=== PATIENT | female | born 1995 | race Caucasian/White ===

== ENCOUNTER → 2019-07-12 09:00 | Outpatient (CLI) | payer SELFPAY ==
--- NOTE | 2019-07-12 | DI.US.S_ITS ---
ULTRASOUND OF LEFT BREAST: 07/12/2019 CLINICAL: Palpable left breast lump and focal pain. No prior exams were available for comparison. Ultrasound of the left breast was performed on the area of interest. Oreilly scale images of the real-time examination were reviewed. IMPRESSION: NEGATIVE There is no sonographic evidence of malignancy. There is no sonographic abnormality seen in the left breast to correspond with the pain in the lower inner quadrant, however, clinical followup is recommended. Return to annual mammogram screening schedule is recommended. This exam was interpreted at Station ID: [id number]. Electronically Signed By: Aleyda Cazares M.D. lk/:07/12/2019 09:34:43 letter sent: Clinical Evaluation Ultrasound BI-RADS: 1 Negative
== END ==
PROVIDERS: Family Provider Family Medicine; Referring Provider Physician Assistant; Visit Provider Physician Assistant
DX: N64.4 Mastodynia (principal); N63.20 Unspecified lump in the left breast, unspecified quadrant
CPT/HCPCS: 76642

== ENCOUNTER → 2022-04-21 09:00 | Outpatient (CLI) | payer OTHER, SELFPAY ==
[2022-04-21 20:25] LABS: HCG Quantitative /Beta subunit < 2.4 mIU/mL
== END ==
PROVIDERS: Family Provider Family Medicine; PCP Physician Assistant; Visit Provider Family Medicine
DX: N92.6 Irregular menstruation, unspecified (principal); Z87.59 Personal history of other complications of pregnancy, childbirth and the puerperium
CPT/HCPCS: 84702

== ENCOUNTER → 2022-10-06 10:46 | Outpatient (CLI) | payer OTHER, SELFPAY ==
[2022-10-06 11:52] LABS: Add Manual Diff / Slide Review NO; Basophils Absolute Auto 0 /uL (0-100); Basophils Percent Auto 0.4 % (0-2); Eosinophils Absolute Auto 100 /uL (0-450); Eosinophils Percent Auto 0.9 % (2-4); Hematocrit 33.9 % (36-46); Hemoglobin 12.1 g/dL (12.0-16.0); Lymphocytes Absolute Auto 1800 /uL (1100-4500); Lymphocytes Percent Auto 24.5 % (25-40); Mean Corpuscular HGB Conc 35.6 % (30-36); Mean Corpuscular Hemoglobin 32.6 PG (26-34); Mean Corpuscular Volume 91.5 fL (80-100); Monocytes Absolute Auto 700 /uL (0-900); Monocytes Percent Auto 9.1 % (3-14); Neutrophils Absolute Auto 4700 /uL (1500-7000); Neutrophils Percent Auto 65.1 % (50-75); Platelet Count 309 X10^3/uL (150-400); White Blood Cell Count 7.2 X10^3/uL (4.5-11.0)
[2022-10-06 15:07] LABS: Urine N gonorrhoeae NOT DETECTED
[2022-10-06 15:32] LABS: Urine Chlamydia NOT DETECTED
[2022-10-06 17:21] LABS: Hepatitis B Surface Antigen NEGATIVE s/c (NEGATIVE); Rubella Antibody IgG 50.7 IU/mL (>15)
[2022-10-06 17:29] LABS: HIV 1 & 2 Ab/Ag 4th Gen Combo NEGATIVE (NEGATIVE); Hep C Virus Ab w/Reflex Quant NEGATIVE s/c (NEGATIVE)
[2022-10-07 06:09] LABS: RPR Screen Non Reactive (Non Reactive)
[2022-10-07 10:36] LABS: Varicella IgG Antibody 1184 index (Immune >165)
== END ==
PROVIDERS: Obstetrics & Gynecology; Family Provider Family Medicine; PCP Physician Assistant; Referring Provider Specialist; Visit Provider Specialist
DX: Z34.80 Encounter for supervision of other normal pregnancy, unspecified trimester (principal)
CPT/HCPCS: 36415; 80055; 86787; 86803; 86850; 86900; 86901; 87086; 87389; 87491; 87591

== ENCOUNTER → 2022-12-03 09:14 | Outpatient (CLI) | payer OTHER, SELFPAY ==
[2022-12-05 19:36] LABS: AFP, Serum 29.2 ng/mL (.); Estriol, Free 0.98 ng/mL (.); Inhibin A, Dimeric 182.45 pg/mL (.); Maternal Ethnicity Caucasian (.); Maternal Weight 150 lbs (.); Number of Fetuses No (.); OSBR Risk 1 IN 10000 (.); Results Report (.); Test Results *Screen Negative* (.); hCG, MoM 0.61 (.); hCG, Serum 24308 mIU/mL (.)
== END ==
PROVIDERS: Family Provider Family Medicine; PCP Physician Assistant; Referring Provider Student in an Organized Health Care Education/Training Program; Visit Provider Student in an Organized Health Care Education/Training Program
DX: Z3A.16 16 weeks gestation of pregnancy (principal); Z34.82 Encounter for supervision of other normal pregnancy, second trimester
CPT/HCPCS: 36415; 82105; 82677; 84702; 86336

== ENCOUNTER → 2022-12-25 08:35 | Outpatient (CLI) | payer OTHER, SELFPAY ==
--- NOTE | 2022-12-25 08:36 | DI.US.S_ITS ---
PROCEDURE: US OB >= 14 WEEKS FETUS INDICATIONS: 20 WEEK ANATOMY OUTSIDE/PRIOR DATING DATA: Last menstrual period (LMP): 08/08/2022. LMP-based estimated date of delivery (MARIA FERNANDA): 05/15/2023. First dating scan (date and location): Not applicable. Estimated date of delivery (MARIA FERNANDA) from first dating scan: Not applicable. The calculations are made using the clinical MARIA FERNANDA of 05/15/2023. TECHNIQUE: Real-time scanning was performed of the fetus, with image documentation and biometric measurements. Endovaginal scanning: Non COMPARISON: None. FINDINGS: General: A single living intrauterine gestation is present. Presentation: Vertex Placenta: Placental position is posterior , without previa. Amniotic fluid index: 14.6 cm, normal range is 5-24 cm. Single deepest vertical pocket is 4.9 cm. heart rate: 155 beats per minute. Maternal cervical canal: 3.9 cm long. Normal lower limit is 2.5 cm. biometrics: Biparietal diameter: 4.7 cm, 20 week 2 day Head circumference: 17.5 cm, 20 week 0 day Abdominal circumference: 15.1 cm, 20 week 2 day Femur length: 3.5 cm, 20 week 2 day Clinically estimated gestational age: 19 week 6 day Composite gestational age from present scan: 20 week 2 day Estimated weight and percentile: 342 g, 69 percentile Anatomic survey: Neuro: Ventricles are non-dilated at less than 10 mm. Cisterna magna is normal at 3-11 mm. Cerebellum is normal in size and morphology. Nuchal skin fold: Normal at less than 6 mm between 14-21 weeks gestational age. Face: Nose and lips, facial profile are normal. Spine: No evidence for spina bifida. Heart: 4-chambered heart is present, with normal ventricular outflow tracts. Diaphragm: Diaphragm is intact. Stomach: Left-sided stomach is present. Kidneys: No hydronephrosis. Normal is less than 5 mm in 2nd trimester, less than 7 mm in 3rd trimester. Cord: 3-vessel cord has orthotopic insertion. Bladder: Normal in size. Extremities: All 4 extremities identified. IMPRESSION: Single live intrauterine consistent with 20 week 2 day gestation Normal anatomic survey Approved by: Christopher Addison M.D. on 12/25/2022 at 14:21
== END ==
PROVIDERS: Family Provider Family Medicine; PCP Physician Assistant; Referring Provider Student in an Organized Health Care Education/Training Program; Visit Provider Student in an Organized Health Care Education/Training Program
DX: Z34.82 Encounter for supervision of other normal pregnancy, second trimester (principal); Z3A.20 20 weeks gestation of pregnancy
CPT/HCPCS: 76811

== ENCOUNTER → 2023-02-16 08:41 | Outpatient (CLI) | payer OTHER, SELFPAY ==
[2023-02-16 10:51] LABS: Hematocrit 31.4 % (36-46); Hemoglobin 11.1 g/dL (12.0-16.0)
[2023-02-16 11:08] LABS: GTT (PREG) 1 Hour PP 50gm Dose 105 mg/dL (76-139)
== END ==
PROVIDERS: Family Provider Family Medicine; PCP Physician Assistant; Referring Provider Student in an Organized Health Care Education/Training Program; Visit Provider Student in an Organized Health Care Education/Training Program
DX: Z34.82 Encounter for supervision of other normal pregnancy, second trimester (principal); Z3A.26 26 weeks gestation of pregnancy
CPT/HCPCS: 82950; 85014; 85018

== ENCOUNTER → 2023-04-15 08:54 | Outpatient (CLI) | payer OTHER, SELFPAY ==
[2023-04-16 08:09] LABS: Strep Grp B PCR NEG for Grp B Strep
== END ==
PROVIDERS: Family Provider Family Medicine; PCP Physician Assistant; Visit Provider Student in an Organized Health Care Education/Training Program
DX: Z34.83 Encounter for supervision of other normal pregnancy, third trimester (principal); Z3A.35 35 weeks gestation of pregnancy
CPT/HCPCS: 87653

== ENCOUNTER → 2023-04-15 09:16 | Outpatient (CLI) | payer OTHER, SELFPAY ==
[2023-04-15 10:18] LABS: Hematocrit 36.1 % (36-46); Hemoglobin 12.5 g/dL (12.0-16.0)
== END ==
PROVIDERS: Family Provider Family Medicine; PCP Physician Assistant; Referring Provider Student in an Organized Health Care Education/Training Program; Visit Provider Student in an Organized Health Care Education/Training Program
DX: O99.013 Anemia complicating pregnancy, third trimester (principal); Z3A.35 35 weeks gestation of pregnancy
CPT/HCPCS: 36415; 85014; 85018; 87653

== ENCOUNTER 2023-05-10 07:19 | Inpatient (IN) | payer OTHER, SELFPAY ==
--- NOTE | 2023-05-10 07:40 | PM.OBHP.1 ---
OB HPI Date/Time Date of admission: 05/10/23 Date Patient Seen: 05/10/23 Time Patient Seen: 07:40 History of Present Condition Chief complaint: Labor, prior , 39 weeks : 4 Para: 1 Estimated Date of Delivery: 05/15/23 Estimated Gestational Age (weeks): 39w 5d Narrative: Leander Orozco is a 27 year old female Comments: Patient developed contraction roughly 1:00 a.m. this morning. She called me at 4:44 a.m. at which time she was having contractions about every 5 minutes. She currently lives on [facility] I instructed her to call 911 and arrange for a helicopter to our hospital. She arrived here at roughly 705. She is now char complaint of contractions about every 5 minutes which are mild to moderately painful. She denies any rupture of membranes or bleeding at this time. She notes good motion. Ob history started at 8 weeks EGA she had an ultrasound done at that time which was compatible with her last menstrual period. Her OB course has been unremarkable until present. She is scheduled for a on the which is tomorrow. Blood type O positive her GBS is negative. Her STI check was all negative. She is rubella immune. Patient is 50 g Glucola was noted to be negative. She also had a normal quad screen. Indications Operative indications ( section): previous uterine surgery (Previous section for occiput posterior) History of Present care: good care (Regular visits starting at 8 weeks and 3 days.) Dating criteria: LMP confirmed by 1st trimester US Ultrasounds: normal mid trimester US Obstetrical complications: none Medical complications: none Preadmission Labs Blood type: A (+) positive -: Antibody screen: negative, GBS status: negative, HBsAG: negative, HIV: negative and RPR/VDLR: negative -: Chlamydia screen: not detected and Gonorrhea screen: not detected -: Rubella: immune and Varicella: immune Quad screen: Normal Prior (ies) History: Patient has had 2 prior miscarriages 1 in 22 April and the 2nd in July 20. She had a full-term delivery in 19 May 2021 at 39 weeks but was for persistent occiput posterior. [facility] Medical History (Updated 03/25/23 @ 14:02 by Yaya Saunders MD) Anemia affecting History of miscarriage Surgical History (System 12/03/22 @ 09:37 by Bettie Coelho) Anesthesia History of hernia surgery (~1996) [place] teeth removed (~2013) History of section, unknown scar (~04/2021) Family History (System 12/03/22 @ 09:37 by Bettie Coelho) Father Hypertension Mother Breast cancer Anemia Grandfather Alzheimer's disease Grandmother Breast cancer Grandfather Stroke Social History (System 12/03/22 @ 09:37 by Bettie Coelho) marital status: number of children: 1 household members: spouse and children lives independently: Yes caregiver/support person: Yes housing: house pets and animals: Yes (2 dogs, 1 cat; managing litter box) education level: master's degree (education) occupational status: previously employed current occupational exposures/hazards: No special benitez needs: No travel history: recent (domestic only) seatbelt use: always water heater temp set < 120 deg: Yes working smoke detector in home: Yes fire extinguisher in home: Yes carbon monox detector in home: Yes firearms in home: No do you feel safe at home: Yes Smoking Status: Never smoker second hand exposure: No alcohol intake: former (2-3/week when not ) substance use type: does not use during the past year weight has: other (dtr 16 months old, currently 20lb over pre-baby wt) well-balanced diet: daily or most days daily servings fruits/ve-4 caffeine: Yes (1 cup black tea in AM) eating out: rarely or never Type(s) of exercise: walking frequency: daily Meds Home Medications and Allergies Home Medications Medication Instructions Recorded Confirmed Type ferrous sulfate 325 mg (65 mg 325 mg PO DAILY 09/23/22 05/05/23 History iron) tablet (FeroSul) vitamin-ferrous sulfate tab PO 09/23/22 05/05/23 History 27 mg iron-folic acid 0.8 mg tablet Allergies Allergy/AdvReac Type Severity Reaction Status Date / Time No Known Drug Allergies Allergy Verified 05/05/23 09:00 OB Exam HENMT Head: normal to inspection Mouth: oral mucosae normal, lip normal and tongue normal Eyes General: appearance normal, both eyes and all related structures Direct ophthalmoscopy: normal light reflex Resp Effort & Inspection: normal respiratory effort and able to speak in complete sentences Auscultation: clear to auscultation bilaterally Cardio Rate: regular rate Rhythm: regular rhythm Heart Sounds: S1 normal and S2 normal Extremities DTR's: Rt Patellar: 1+ and Lt Patellar: 1+ GI Inspection: abdominal wall ecchymosis Palpation: Yes soft and Yes mass (Uterus is normal size there is a Pfannenstiel incision well healed.) Auscultation: normoactive bowel sounds Presentation: vertex Assessment and Plan Assessment and Plan Assessment and Plan narrative: 28-year-old G4 P 1 0 2 1. Previous section, 39 weeks 1 day, early labor. Plan we will perform repeat low-transverse section. Risks and benefits have been explained to the patient including those but not limited to bleeding infection injury to pelvic organs which include the uterus tubes ovaries bowel bladder and ureters she is aware of the potential for DVT with PE as well as postop adhesions which goes pain bowel obstruction and infertility.
[2023-05-10] MEDS: TERBUTALINE 1 MG/ML VIAL 0.25 MG SUBCUT (07:51)
--- NOTE | 2023-05-10 07:54 | SUR.OPER ---
Supine on Padded OR bed, head on pillow, safety belt at thigh, arms secured on padded arm boards at <90 degrees abduction. Bump under right buttock. Legs uncrossed with pillow under knees, gel pad to heels, tape over blanket to lower legs.
[2023-05-10 08:05] LABS: Add Manual Diff / Slide Review NO; Basophils Absolute Auto 0 /uL (0-100); Basophils Percent Auto 0.2 % (0-2); Eosinophils Absolute Auto 0 /uL (0-450); Eosinophils Percent Auto 0.1 % (2-4); Hematocrit 35.2 % (36-46); Hemoglobin 12.3 g/dL (12.0-16.0); Lymphocytes Absolute Auto 1200 /uL (1100-4500); Lymphocytes Percent Auto 10.7 % (25-40); Mean Corpuscular HGB Conc 35.1 % (30-36); Mean Corpuscular Hemoglobin 33.4 PG (26-34); Mean Corpuscular Volume 95.3 fL (80-100); Monocytes Absolute Auto 700 /uL (0-900); Neutrophils Absolute Auto 9300 /uL (1500-7000); Platelet Count 182 X10^3/uL (150-400); Red Blood Cell Count 3.69 X10^6/uL (4.0-5.2); Red Cell Distribution Width 13.4 % (11.6-14.8); White Blood Cell Count 11.1 X10^3/uL (4.5-11.0)
[2023-05-10] MEDS: CEFAZOLIN 2 GM/100 ML PREMIX 100 ML IV (08:23)
[2023-05-10] MEDS: ACETAMINOPHEN IV 1,000 MG/100 ML VIAL 400 MG IV (08:55)
[2023-05-10] MEDS: LACTATED RINGERS 1,000 ML 100 ML IV (09:14)
[2023-05-10 09:36] VITALS: BP 114/43; PULSE 69; RESP 11; TEMP 36.1; O2SAT 93
--- NOTE | 2023-05-10 09:36 | PM.OBCS.1 ---
Operative Date/Time/Diagnoses Date of procedure: 05/10/23 Pre-op diagnosis: 1. early labor 2. previous section 3. 39 weeks 1 day Post-op diagnosis: same (Live female left occiput transverse loose nuchal cord x1 Apgars 7 and 9) Procedure & Clinicians Same procedure as scheduled: Yes Surgeon: Erik Hargrove Paperhanger Pipe: Yaya Saunders Reason for Paperhanger Pipe: section Anesthesia Type: Spinal Operative Notes Findings: Live female left occiput transverse Apgars 7 and 9 clear amniotic fluid loose nuchal cord x1 Closure Type: primary Specimen(s): cord blood Intraoperative meds administered: Duramorph and Pitocin (30 units) Applied: Catheter Estimated Blood Loss (mL): 700 Blood products transfused: none Procedure in detail: Patient was taken the operating room she was prepped and draped in the usual fashion. Her abdomen had been previously wiped with sterile chlorhexidine. At this point a spinal anesthetic was placed in the standard fashion she was placed on the table in the supine position with a roll under right hip previous SCDs already placed she had a De La Paz catheter placed in a sterile condition she was then prepped and draped in the usual fashion. Patient was identified and all concerns were addressed. At this point a Pfannenstiel incision was carried down through the old incision down to subcutaneous tissue to the fascia electrocautery was utilized for hemostasis in the way and the fascia was then scored with a 10. Blade and extended laterally utilizing Gonzalez scissors. The fascia was then dissected from the rectus superiorly and then inferiorly care was try taken to avoid injury to the bladder. The peritoneum was entered high and the incision was carried superiorly and inferiorly with Metzenbaum scissors the bladder. The bladder was somewhat adherent higher in the abdominal cavity. As well as higher in the lower uterine segment. At this point the bladder was dissected free from the lower uterine segment and a midline vessel was cauterized utilizing electrocautery. A low-transverse uterine incision was accomplished utilizing a 10. Blade bandage scissors as well as finger spread technique. The amniotic fluid membranes were ruptured and the fluid was allowed to escape. This was noted to be clear in nature. The head of the infant was lifted out of the pelvis noted to be in left occiput transverse the cord was down around the neck loosely fitting. The head was then delivered utilizing fundal pressure. The infant was lifted out of the pelvis and delivered in his entirety. The cord was not clamped for 30 seconds. The cord was doubly clamped divided and the infant was then handed to the nurse as well as RT that was standing by. The placenta was manually delivered the uterus was exteriorized wrapped in moist lap and cleansed the internal portion with a dry lap the lower portion of the uterine incision was clasped with 3 ring forceps the cervix was then dilated with a ring forcep and set aside. The uterine incision was closed utilizing 0. Vicryl running locking suture with an imbricating layer of 0. Vicryl. The incision inspected no bleeding was noted at this point the uterus was tipped forward the cul-de-sac was irrigated and an estimated blood loss was obtained at this time. The irrigate the cul-de-sac was irrigated with copious amounts of sterile saline the uterus delivered back in the abdominal cavity gutters were likewise irrigated. The uterine incision inspected there was no bleeding. At this point the peritoneum was closed utilizing 2-0 Vicryl in a running suture. The rectus was reapproximated with 2 [id number] of 2-0 Vicryl. The rectus inspected electrocautery is used for any minor bleeders. The fascia was closed utilizing a 0 loop PDS in a running suture. The subcutaneous tissue was treated with electrocautery and then the subcutaneous tissues closed utilizing 0 2-0 Vicryl in a running locking suture the incisions self was closed utilizing 4-0 Monocryl subcutaneous as well as Mastisol and Steri-Strips a dressing was applied. The urine was inspected no evidence of any bleeding was noted patient was taken covered in stable condition sponge and needle counts were correct. This ends dictation. Complications: none Post-operative Condition: stable Disposition: PACU Aftercare: routine postop
[2023-05-10 09:40] VITALS: BP 100/47; PULSE 71; RESP 15; O2SAT 95
[2023-05-10 09:41] VITALS: BP 104/37; PULSE 67; RESP 17; O2SAT 93
[2023-05-10 15:39] VITALS: BP 115/67
[2023-05-10] MEDS: KETOROLAC 30 MG/ML VIAL IV ×2 (15:41→21:01)
[2023-05-10] MEDS: ONDANSETRON 4 MG/2 ML INJ IV (17:07)
[2023-05-10] MEDS: LORATADINE 10 MG TABLET PO (19:37)
[2023-05-10] MEDS: ACETAMINOPHEN 325 MG TABLET 650 MG PO (21:01)
[2023-05-11] MEDS: KETOROLAC 30 MG/ML VIAL IV (03:17)
--- NOTE | 2023-05-11 05:57 | P.PNOB_ITS ---
Subjective - OB Subjective Patient comments: pain well controlled (2/10), tolerating diet and flatus present (Patient is not passing flatus at this time. She is voiding easily and well.) Date Patient Seen: 05/11/23 Time Patient Seen: 05:59 Exam Vital Signs (past 8 hours): Oxygen Delivery Method Room Air Const General: cooperative, healthy appearing, comfortable, well developed and well hydrated Nutritional Appearance: well nourished Orientation: alert, awake and oriented x3 Eyes General: appearance normal, both eyes and all related structures Resp Effort & Inspection: normal respiratory effort and able to speak in complete sentences Cardio Rate: regular rate Rhythm: regular rhythm Heart Sounds: S1 normal and S2 normal GI Inspection: normal to inspection (Dressing is dry and intact.) Palpation: soft Auscultation: normal bowel sounds Extrem General: normal to inspection and no calf tenderness Objective Labs 05/10/23 08:00 Labs: Laboratory Results - last 24 hr 05/10/23 08:00 WBC 11.1 H RBC 3.69 L Hgb 12.3 Hct 35.2 L MCV 95.3 MCH 33.4 MCHC 35.1 RDW 13.4 Plt Count 182 Neut % (Auto) 83.0 H Lymph % (Auto) 10.7 L [place] % (Auto) 6.0 Eos % (Auto) 0.1 L Baso % (Auto) 0.2 Neut # (Auto) 9300 H Lymph # (Auto) 1200 [place] # (Auto) 700 Eos # (Auto) 0 Baso # (Auto) 0 Blood Type A Positive Antibody Screen Negative Assessment & Plan Plan day: 1 plan OB: routine care Comments: Patient is doing well at this time she voices no complaints. She has not passing flatus yet however she is voiding easily and ambulating well. Time Spent With Patient Time: Total time spent is greater than 50% in coordination of care (as documented) at patient's floor/unit and/or counseling patient: Time with patient: less than 15 minutes
[2023-05-11] MEDS: ACETAMINOPHEN 325 MG TABLET 650 MG PO ×2 (06:09→12:05)
[2023-05-11 06:36] LABS: Add Manual Diff / Slide Review NO; Basophils Absolute Auto 0 /uL (0-100); Basophils Percent Auto 0.3 % (0-2); Eosinophils Absolute Auto 0 /uL (0-450); Eosinophils Percent Auto 0.2 % (2-4); Hematocrit 27.7 % (36-46); Hemoglobin 9.6 g/dL (12.0-16.0); Lymphocytes Absolute Auto 2800 /uL (1100-4500); Lymphocytes Percent Auto 20.6 % (25-40); Mean Corpuscular HGB Conc 34.8 % (30-36); Mean Corpuscular Hemoglobin 32.8 PG (26-34); Mean Corpuscular Volume 94.2 fL (80-100); Monocytes Absolute Auto 1400 /uL (0-900); Monocytes Percent Auto 10.2 % (3-14); Neutrophils Absolute Auto 9400 /uL (1500-7000); Neutrophils Percent Auto 68.7 % (50-75); Platelet Count 182 X10^3/uL (150-400); Red Blood Cell Count 2.94 X10^6/uL (4.0-5.2); Red Cell Distribution Width 13.1 % (11.6-14.8); White Blood Cell Count 13.7 X10^3/uL (4.5-11.0)
[2023-05-11] MEDS: IBUPROFEN 600 MG TABLET PO (09:31)
[2023-05-11] MEDS: PRENATAL VIT,CALC/IRON/FOLIC 1 TABLET 1 TAB PO (09:31)
[2023-05-11] MEDS: DOCUSATE 100 MG CAPSULE PO (09:31)
--- NOTE | 2023-05-11 11:21 | P.DS_ITS ---
Discharge Providers Provider Date of admission: 05/10/23 07:19 Discharge Date: 05/11/23 Primary care physician: Marilee William PA-C Consults: 05/10/23 07:32 Consult to Anesthesiology Urgent Comment: Consulting Provider: Anesthesiologist Reason for consultation: Epidural 05/10/23 09:54 Consult to Business Operations Manager Routine Comment: Discharge provider: Letha Cyr DO Summary Hospital Course Date Patient Seen: 05/11/23 Time Patient Seen: 11:21 Diagnoses: 1. Term gestation at 39+1wks 2. History of prior delivery 3. Postoperative anemia due to expected blood loss Hospital Course: 27yo [id number] admitted at 39+1wks in early labor. She had a history of prior , and since our facility does not offer a trial of labor, she underwent a repeat section. Her delivery was uncomplicated, and productive of a viable female infant with APGARs 7/9. Her course was unremarkable. On post-op day #1, she was ambulating, tolerating regular diet, voiding spontaneously with minimal lochia. Her pain was well controlled with oral medications, thus she was discharged to home on post-op day #1. Peripartum Data Delivery Method: Section Procedures: External monitoring Neuraxial anesthesia Low-transverse section complications: none Discharge Diagnosis (1) delivery, delivered, current hospitalization: Status: Acute (2) Acute postoperative anemia due to expected blood loss: Status: Acute (3) Uterine scar from previous delivery affecting : Status: Acute Status at Discharge Cognitive/behavioral status at discharge: oriented Functional status at discharge: independent ambulation Overall status at discharge: patient is progressing back to baseline Time Spent with Patient Time attestation: Total time spent providing and/or coordinating discharge services: Time spent: Less than 30 minutes Objective Labs 05/11/23 06:20 Labs: Laboratory Results - last 24 hr 05/11/23 06:20 WBC 13.7 H RBC 2.94 L Hgb 9.6 L Hct 27.7 L MCV 94.2 MCH 32.8 MCHC 34.8 RDW 13.1 Plt Count 182 Neut % (Auto) 68.7 Lymph % (Auto) 20.6 L Shannon % (Auto) 10.2 Eos % (Auto) 0.2 L Baso % (Auto) 0.3 Neut # (Auto) 9400 H Lymph # (Auto) 2800 Shannon # (Auto) 1400 H Eos # (Auto) 0 Baso # (Auto) 0 Exam Vital Signs (past 8 hours): Oxygen Delivery Method Room Air Const General: cooperative, healthy appearing, comfortable and No acute distress Resp Effort & Inspection: normal respiratory effort GI Inspection: normal to inspection Other: fundus firm and nontender at U-2 Skin General: no rashes or lesions noted Other: Low-transverse skin incision covered with Aquacel dressing with minimal strike through Neuro General: patient alert and patient awake Extrem General: normal to inspection, no pedal edema and no calf tenderness Psych Mood: congruent mood Affect: normal affect Discharge Plan Discharge Plan Patient Disposition: Home Provider Discharge Comment: Take ibuprofen and acetaminophen as scheduled for postoperative pain. Take oxycodone as needed for severe pain. Continue taking iron supplementation daily for anemia. Avoid lifting over 20 lb for at least 6 weeks. Avoid placing anything in the vagina for 6 weeks. Discharge orders & Medications Prescriptions: New acetaminophen 325 mg Tablet 650 mg PO Q6H Qty: 30 0RF ibuprofen 600 mg Tablet 600 mg PO Q6H Qty: 30 0RF oxycodone 5 mg Tablet 5 mg PO Q4H PRN (Reason: Pain, Moderate (4-6)) Qty: 10 0RF Continued vit-ferrous sulfat-FA 27 mg iron- 0.8 mg tablet 1 tab PO ferrous sulfate [FeroSul] 325 mg (65 mg iron) tablet 325 mg PO DAILY Follow up/Referrals: Letha Cyr DO [Physician] - 05/18/23 11:15 am (Please follow up with Dr. Cyr in one week for an incision check and then again at 6 weeks for your visit on 06/22/2023 at 11:30am.) Diet/Activity/Treatments Diet: Diet as Tolerated Activity: As tolerated Skin/Wound/Dressing Care Report to your healthcare provider any signs of infection, such as:: chills, fever, increased pain, unusual drainage and unusual redness Dressing: You may shower normally with dressing in place. Visit Report/Discharge Packet Instructions: DI for , DI for Prescription Opioid Use Stand Alone Forms: Discharge: Care, Patient Portal/API, Stroke Signs & Symptoms Discharge Data Primary Care Provider: Marilee William
== END 2023-05-11 13:10 | disposition home or self-care (01) | DRG 787 ==
PROVIDERS: Admitting Provider Obstetrics & Gynecology; Family Provider Family Medicine; PCP Physician Assistant; Referring Provider Obstetrics & Gynecology; Visit Provider Obstetrics & Gynecology
PROC: 10D00Z1 Extraction of Products of Conception, Low, Open Approach (ICD-10-PCS; CPT 59514; principal; 2023-05-10 08:30)
DX: O34.211 Maternal care for low transverse scar from previous cesarean delivery (principal); D62 Acute posthemorrhagic anemia; O90.81 Anemia of the puerperium; Z3A.39 39 weeks gestation of pregnancy; Z37.0 Single live birth; Z23 Encounter for immunization
CPT/HCPCS: 36415; 59025; 59050; 59510; 59514; 85025; 86850; 86900; 86901; J0136; J0690; J1100; J1885; J2274; J2405

== ENCOUNTER → 2024-09-16 09:54 | Outpatient (CLI) | payer OTHER, SELFPAY ==
[2024-09-19 09:26] LABS: Urine Chlamydia NOT DETECTED; Urine N gonorrhoeae NOT DETECTED
== END ==
PROVIDERS: PCP Physician Assistant; Visit Provider Student in an Organized Health Care Education/Training Program
DX: Z11.3 Encounter for screening for infections with a predominantly sexual mode of transmission (principal)
CPT/HCPCS: 87491; 87591

== ENCOUNTER → 2024-11-23 08:55 | Outpatient (CLI) | payer OTHER, SELFPAY | PROVIDERS: Obstetrics & Gynecology; PCP Physician Assistant; Referring Provider Physician Assistant; Visit Provider Physician Assistant | DX: Z34.82 Encounter for supervision of other normal pregnancy, second trimester (principal) | CPT/HCPCS: 36415; 82105 ==

== ENCOUNTER → 2024-12-16 09:51 | Outpatient (CLI) | payer OTHER, SELFPAY ==
--- NOTE | 2024-12-16 09:51 | DI.US.S_ITS ---
PROCEDURE: US OB >= 14 WEEKS FETUS INDICATIONS: anatomy scan TECHNIQUE: Real-time scanning was performed of the fetus, with image documentation and biometric measurements. Calculations are based on the working MARIA FERNANDA of 04/27/2025. COMPARISON: [facility], , OB >= 14 WEEKS FETUS, 04/15/2023, 9:13. FINDINGS: General: A single living intrauterine gestation is present. Presentation: Mobile. Placenta: Placental position is posterior , without previa. Amniotic fluid index: 11.8 cm, normal range is 5-24 cm. Single deepest vertical pocket is 0.7 cm. heart rate: 140 beats per minute. Maternal cervical canal: 3.4 cm long. Normal lower limit is 2.5 cm. biometrics: Biparietal diameter: 4.9 cm, 20 week 6 day Head circumference: 18.2 cm, 20 week 4 day Abdominal circumference: 17.0 cm, 22 week 0 day Femur length: 3.5 cm, 21 week 1 day Clinically estimated gestational age: 20 week 3 day Composite gestational age from present scan: 21 week 1 day Estimated weight and percentile: 427 g, 93 percent Anatomic survey: Neuro: Ventricles are non-dilated at less than 10 mm. Cisterna magna is normal at 3-11 mm. Cerebellum is normal in size and morphology. Nuchal skin fold: Normal at less than 6 mm between 14-21 weeks gestational age. Face: Nose and lips, facial profile are normal. Spine: No evidence for spina bifida. Heart: 4-chambered heart is present, with normal ventricular outflow tracts. Diaphragm: Diaphragm is intact. Stomach: Left-sided stomach is present. Kidneys: No hydronephrosis. Normal is less than 5 mm in 2nd trimester, less than 7 mm in 3rd trimester. Cord: 3-vessel cord has orthotopic insertion. Bladder: Normal in size. Extremities: All 4 extremities identified. IMPRESSION: Single live intrauterine consistent with a 21 week 1 day gestation by ultrasound Normal anatomic survey Approved by: Christopher Addison M.D. on 12/16/2024 at 17:36
== END ==
LOC: US 09:51
PROVIDERS: PCP Physician Assistant; Referring Provider Obstetrics & Gynecology; Visit Provider Obstetrics & Gynecology
DX: Z34.82 Encounter for supervision of other normal pregnancy, second trimester (principal); Z3A.20 20 weeks gestation of pregnancy
CPT/HCPCS: 76811

== ENCOUNTER → 2025-01-30 09:09 | Outpatient (CLI) | payer OTHER, SELFPAY ==
[2025-01-30 10:59] LABS: Hematocrit 30.5 % (36-46); Hemoglobin 10.9 g/dL (12.0-16.0)
[2025-01-30 11:17] LABS: GTT (PREG) 1 Hour PP 50gm Dose 100 mg/dL (76-139)
== END ==
PROVIDERS: PCP Physician Assistant; Referring Provider Physician Assistant; Visit Provider Obstetrics & Gynecology
DX: Z13.1 Encounter for screening for diabetes mellitus (principal); Z13.0 Encounter for screening for diseases of the blood and blood-forming organs and certain disorders involving the immune mechanism
CPT/HCPCS: 36415; 82950; 85014; 85018